=== PATIENT | female | born 1955 | race African-American/Black ===

== ENCOUNTER 2018-04-13 17:52 | Inpatient (IN) | payer MEDICARE, MEDICAID ==
[~2018-04-13] VITALS: Ht 162.6 cm; Wt 55.3 kg
[~2018-04-13 17:52] MED LIST: ACET-2178 PO; ASCO100T12 PO; BENZ1TAB7 PO; DEXT1DRO3 OP; GABA-290 PO; GLIP5TAB12 PO; LEVVL SQ; LISI10TA5 PO; METF-415 PO; MULT1TAB11 PO; OLAN10TA3 PO; OMEP20CA4 PO
[2018-04-13] MEDS ORDERED: ACETAMINOPHEN 325MG TABLET PO STA (18:17)
[2018-04-13] MEDS ORDERED: SODIUM CHLORIDE 0.9% 1000ML BAG (SEPSIS BOLUS) IV ONE (18:30)
[2018-04-13] MEDS ORDERED: PIPERACILLIN/TAZ 3.375G PREMIX 50 ML IV ONE (18:30)
[2018-04-13] MEDS ORDERED: VANCOMYCIN 1 G PREMIX 200 ML IV ONE (18:30)
[2018-04-13 19:07] LABS: HEMATOCRIT. 24.1 % (36.0-48.0); HEMOGLOBIN. 7.9 g/dL (12.0-16.0); MEAN CORPUSCULAR HEMOGLOBIN 23.2 pg (28.0-32.0); MEAN PLATELET VOLUME 8.4 fl (7.4-10.4); PLATELET 475 x1000/uL (130-400); RED BLOOD CELL COUNT 3.39 mill/uL (4.2-5.4); RED CELL DISTRIBUTION WIDTH 21.2 % (11.6-14.6)
[2018-04-13 19:15] LABS: CHLORIDE 100 mEq/L (98-107)
[2018-04-13 19:23] LABS: INR 1.2; PROTHROMBIN TIME 12.2 sec (9.1-11.1)
[2018-04-13 19:44] LABS: PLATELET ESTIMATE NORMAL
[2018-04-13] MEDS ORDERED: LORAZEPAM 2MG/ML CPJ IV PRN (20:15)
[2018-04-13] MEDS ORDERED: GUAIFENESIN 200MG/10ML SUGAR FREE UDC PO PRN (20:15)
[2018-04-13] MEDS ORDERED: ACETAMINOPHEN 325MG TABLET PO PRN (20:15)
[2018-04-13] MEDS ORDERED: ONDANSETRON HCL 4MG/2ML INJ IV PRN (20:15)
[2018-04-13] MEDS ORDERED: DOCUSATE SODIUM 100MG CAPSULE PO PRN (20:15)
[2018-04-14 02:50] VITALS: BP 106/67
[2018-04-14 03:02] LABS: CLARITY URINE CLOUDY (CLEAR); COLOR URINE YELLOW (YELLOW); PH URINE >=9.0 (4.5-8.0); SPECIFIC GRAVITY URINE 1.026 (1.005-1.030)
[2018-04-14 03:03] LABS: KETONES URINE NEGATIVE (NEGATIVE); PROTEIN URINE 1+ (NEGATIVE)
[2018-04-14 03:04] LABS: NITRITE URINE NEGATIVE (NEGATIVE); OCCULT BLOOD URINE TRACE (NEGATIVE)
[2018-04-14 03:05] LABS: LEUKOCYTE ESTERASE URINE 2+ (NEGATIVE)
[2018-04-14] MEDS: DEXT 5%/0.45% NACL 1000ML 1,000 ML IV SCH ×2 (03:22→17:51)
[2018-04-14 03:35] VITALS: BP 106/67
[2018-04-14] MEDS ORDERED: NA P230E RC (04:26)
[2018-04-14] MEDS ORDERED: MOM GT (04:26)
[2018-04-14] MEDS ORDERED: FERR15DR7 GT (04:26)
[2018-04-14] MEDS ORDERED: LOSA50TA20 GT (04:26)
[2018-04-14] MEDS ORDERED: CARB1TAB5 GT (04:26)
[2018-04-14] MEDS ORDERED: AMIN30LI2 PO (04:26)
[2018-04-14] MEDS ORDERED: BISA10SU62 RC (04:26)
[2018-04-14] MEDS ORDERED: DOCU-138 GT (04:26)
[2018-04-14] MEDS ORDERED: LACT10SO7 GT (04:26)
[2018-04-14] MEDS ORDERED: LEVOFLOXACIN 500MG PREMIX 100 ML IV SCH (05:00)
[2018-04-14] MEDS ORDERED: DEXTROSE 50% WATER 50ML SYRINGE IV PRN (05:15)
[2018-04-14] MEDS: INSULIN LISPRO 100 UNITS/ML SUBCUT SCH ×4 (06:42→21:00)
[2018-04-14] MEDS: BLOOD SUGAR DIAGNOSTIC STRIP TEST SCH ×4 (06:43→21:22)
[2018-04-14 08:00] VITALS: BP 94/58
[2018-04-14] MEDS: ASPIRIN 81MG EC TABLET PO SCH (09:08)
[2018-04-14] MEDS: ENOXAPARIN 40MG/0.4ML SYR SUBCUT SCH (09:08)
[2018-04-14 09:26] LABS: HEMATOCRIT. 22.2 % (36.0-48.0); HEMOGLOBIN. 7.3 g/dL (12.0-16.0); MEAN CORPUSCULAR HEMOGLOBIN 23.2 pg (28.0-32.0); MEAN CORPUSCULAR VOLUME 71.2 fL (81.0-99.0); MEAN PLATELET VOLUME 8.5 fl (7.4-10.4); PLATELET 427 x1000/uL (130-400); RED BLOOD CELL COUNT 3.12 mill/uL (4.2-5.4); RED CELL DISTRIBUTION WIDTH 21.2 % (11.6-14.6)
[2018-04-14] MEDS ORDERED: LIDOCAINE HCL/EPINEPHRINE 1%-EPI 1:100,000 20 ML VIAL INFIL ONE (09:30)
[2018-04-14 09:41] LABS: CHLORIDE 104 mEq/L (98-107)
[2018-04-14] MEDS ORDERED: CARBIDOPA/LEVODOPA 25/100MG TABLET CR PO SCH (11:00)
[2018-04-14 11:46] LABS: PLATELET ESTIMATE INCREASED
[2018-04-14] MEDS: CARBIDOPA/LEVODOPA 25/100MG TABLET GT SCH ×2 (13:29→17:47)
[2018-04-14] MEDS ORDERED: VANCOMYCIN 1250MG in DEXTROSE 5% WATER 250ML IV NR (14:00)
[2018-04-14] MEDS: GABAPENTIN 300MG CAPSULE PO SCH ×2 (14:00→21:23)
[2018-04-14] MEDS: PIPERACILLIN/TAZ 3.375G PREMIX 50 ML IV SCH ×2 (15:25→21:21)
[2018-04-14] MEDS ORDERED: DOCUSATE SODIUM SUGAR FREE 100MG/10ML UDC GT PRN (15:30)
[2018-04-14 16:00] VITALS: BP 105/62
[2018-04-14 20:00] VITALS: BP 104/59
[2018-04-14] MEDS: GABAPENTIN SOLN 50MG/1ML UDC NG SCH (21:22)
[2018-04-15] VITALS: BP 110/63
[2018-04-15] MEDS: ACETAMINOPHEN 325MG TABLET PO PRN ×2 (00:34→09:08)
[2018-04-15] MEDS: VANCOMYCIN 750 MG PREMIX 150 ML IV SCH ×2 (01:10→14:00)
[2018-04-15] MEDS: PIPERACILLIN/TAZ 3.375G PREMIX 50 ML IV SCH ×4 (02:48→21:31)
[2018-04-15 04:00] VITALS: BP 116/69
[2018-04-15] MEDS: GABAPENTIN SOLN 50MG/1ML UDC NG SCH ×3 (06:30→21:14)
[2018-04-15] MEDS: LEVOFLOXACIN 500MG PREMIX 100 ML IV SCH (06:30)
[2018-04-15] MEDS: BLOOD SUGAR DIAGNOSTIC STRIP TEST SCH ×4 (06:31→21:11)
[2018-04-15] MEDS: INSULIN LISPRO 100 UNITS/ML SUBCUT SCH ×4 (06:31→21:16)
[2018-04-15 07:40] LABS: CHLORIDE 104 mEq/L (98-107)
[2018-04-15 08:00] VITALS: BP 108/64
[2018-04-15] MEDS: ASPIRIN 81MG EC TABLET PO SCH (09:06)
[2018-04-15] MEDS: CARBIDOPA/LEVODOPA 25/100MG TABLET GT SCH ×3 (09:06→18:44)
[2018-04-15] MEDS: ENOXAPARIN 40MG/0.4ML SYR SUBCUT SCH (09:07)
[2018-04-15 12:00] VITALS: BP 97/61
[2018-04-15 16:00] VITALS: BP 106/62
[2018-04-15 17:08] LABS: BASOPHILS % 0.9 % (0.0-2.0); EOSINOPHILS % 0.7 % (0.0-5.0); HEMATOCRIT. 23.3 % (36.0-48.0); HEMOGLOBIN. 7.6 g/dL (12.0-16.0); MEAN CORPUSCULAR HEMOGLOBIN 23.4 pg (28.0-32.0); MEAN CORPUSCULAR VOLUME 71.8 fL (81.0-99.0); MEAN PLATELET VOLUME 8.6 fl (7.4-10.4); MONOCYTES % 4.1 % (2.0-8.0); NEUTROPHILS % 81.3 % (40.0-76.0); PLATELET 505 x1000/uL (130-400); RED BLOOD CELL COUNT 3.25 mill/uL (4.2-5.4)
[2018-04-15 17:20] LABS: CHLORIDE 106 mEq/L (98-107)
[2018-04-15 20:00] VITALS: BP 115/70
[2018-04-16] VITALS: BP 98/58
[2018-04-16] MEDS: ACETAMINOPHEN 325MG TABLET PO PRN ×2 (00:25→10:26)
[2018-04-16] MEDS: DEXT 5%/0.45% NACL 1000ML 1,000 ML IV SCH (00:28)
[2018-04-16] MEDS: VANCOMYCIN 750 MG PREMIX 150 ML IV SCH ×2 (01:03→16:47)
[2018-04-16] MEDS: PIPERACILLIN/TAZ 3.375G PREMIX 50 ML IV SCH ×2 (03:09→09:14)
[2018-04-16 04:00] VITALS: BP 97/65
[2018-04-16] MEDS: GABAPENTIN SOLN 50MG/1ML UDC NG SCH ×3 (05:16→20:48)
[2018-04-16] MEDS: BLOOD SUGAR DIAGNOSTIC STRIP TEST SCH ×4 (05:20→20:48)
[2018-04-16] MEDS: LEVOFLOXACIN 500MG PREMIX 100 ML IV SCH (05:20)
[2018-04-16] MEDS: INSULIN LISPRO 100 UNITS/ML SUBCUT SCH ×4 (05:21→20:48)
[2018-04-16 08:00] VITALS: BP 128/68
[2018-04-16] MEDS: ASPIRIN 81MG EC TABLET PO SCH (09:14)
[2018-04-16] MEDS: CARBIDOPA/LEVODOPA 25/100MG TABLET GT SCH ×3 (09:14→17:55)
[2018-04-16] MEDS: ENOXAPARIN 40MG/0.4ML SYR SUBCUT SCH (09:15)
[2018-04-16 12:00] VITALS: BP 118/66
[2018-04-16] MEDS: MEROPENEM 1,000 MG in SODIUM CHLORIDE 0.9% 100 ML IV SCH ×2 (12:38→20:36)
[2018-04-16 16:00] VITALS: BP 120/64
[2018-04-16] MEDS: SODIUM CHLORIDE 0.45% 1,000 ML IV SCH (17:56)
[2018-04-16 20:00] VITALS: BP 122/66
[2018-04-17] VITALS: BP 113/65
[2018-04-17] MEDS: MEROPENEM 1,000 MG in SODIUM CHLORIDE 0.9% 100 ML IV SCH ×3 (03:32→20:39)
[2018-04-17 04:00] VITALS: BP 123/64
[2018-04-17] MEDS: SODIUM CHLORIDE 0.45% 1,000 ML IV SCH ×2 (05:06→23:33)
[2018-04-17] MEDS: GABAPENTIN SOLN 50MG/1ML UDC NG SCH ×3 (05:06→21:04)
[2018-04-17] MEDS: BLOOD SUGAR DIAGNOSTIC STRIP TEST SCH ×4 (06:02→20:45)
[2018-04-17] MEDS: INSULIN LISPRO 100 UNITS/ML SUBCUT SCH ×4 (06:06→20:45)
[2018-04-17 07:57] VITALS: BP 105/64
[2018-04-17] MEDS: CARBIDOPA/LEVODOPA 25/100MG TABLET GT SCH ×3 (09:47→17:46)
[2018-04-17] MEDS: ASPIRIN 81MG EC TABLET PO SCH (09:47)
[2018-04-17] MEDS: ACETAMINOPHEN 325MG TABLET PO PRN (09:47)
[2018-04-17] MEDS: VANCOMYCIN 750 MG PREMIX 150 ML IV SCH (09:48)
[2018-04-17] MEDS: ENOXAPARIN 40MG/0.4ML SYR SUBCUT SCH (09:48)
[2018-04-17 09:59] LABS: BASOPHILS % 0.5 % (0.0-2.0); LYMPHOCYTES % 12.2 % (20.0-50.0); MEAN CORPUSCULAR HEMOGLOBIN 23.9 pg (28.0-32.0); MEAN CORPUSCULAR VOLUME 71.6 fL (81.0-99.0); MEAN PLATELET VOLUME 8.6 fl (7.4-10.4); MONOCYTES % 6.4 % (2.0-8.0); NEUTROPHILS % 79.9 % (40.0-76.0); PLATELET 567 x1000/uL (130-400); RED BLOOD CELL COUNT 2.93 mill/uL (4.2-5.4); RED CELL DISTRIBUTION WIDTH 20.8 % (11.6-14.6)
[2018-04-17 10:00] VITALS: BP 106/70
[2018-04-17 10:11] LABS: CHLORIDE 104 mEq/L (98-107)
[2018-04-17] MEDS ORDERED: ACETAMINOPHEN 325MG TABLET PO SCH (11:00)
[2018-04-17 16:00] VITALS: BP 100/59
[2018-04-17 20:00] VITALS: BP 112/59
[2018-04-18] VITALS: BP 134/81
[2018-04-18] MEDS: MEROPENEM 1,000 MG in SODIUM CHLORIDE 0.9% 100 ML IV SCH ×3 (03:37→22:32)
[2018-04-18 04:00] VITALS: BP 142/82
[2018-04-18] MEDS: GABAPENTIN SOLN 50MG/1ML UDC NG SCH ×3 (06:26→22:33)
[2018-04-18] MEDS: BLOOD SUGAR DIAGNOSTIC STRIP TEST SCH ×4 (06:26→21:00)
[2018-04-18] MEDS: INSULIN LISPRO 100 UNITS/ML SUBCUT SCH ×4 (06:28→21:00)
[2018-04-18 08:00] VITALS: BP 124/66
[2018-04-18] MEDS: ENOXAPARIN 40MG/0.4ML SYR SUBCUT SCH (08:26)
[2018-04-18] MEDS: CARBIDOPA/LEVODOPA 25/100MG TABLET GT SCH ×3 (08:26→16:51)
[2018-04-18] MEDS: ASPIRIN 81MG EC TABLET PO SCH (08:26)
[2018-04-18] MEDS: SODIUM CHLORIDE 0.45% 1,000 ML IV SCH ×2 (08:27→22:33)
[2018-04-18 12:00] VITALS: BP 101/97
[2018-04-18 16:00] VITALS: BP 122/80
[2018-04-18 20:00] VITALS: BP 126/75
[2018-04-19] VITALS: BP 125/71
[2018-04-19] MEDS: ACETAMINOPHEN 325MG TABLET PO PRN (01:13)
[2018-04-19 04:00] VITALS: BP 105/56
[2018-04-19] MEDS: MEROPENEM 1,000 MG in SODIUM CHLORIDE 0.9% 100 ML IV SCH ×3 (04:00→21:55)
[2018-04-19] MEDS: INSULIN LISPRO 100 UNITS/ML SUBCUT SCH ×4 (07:08→21:58)
[2018-04-19] MEDS: BLOOD SUGAR DIAGNOSTIC STRIP TEST SCH ×4 (07:10→21:58)
[2018-04-19] MEDS: GABAPENTIN SOLN 50MG/1ML UDC NG SCH ×3 (07:10→21:57)
[2018-04-19 08:00] VITALS: BP 142/71
[2018-04-19] MEDS: CARBIDOPA/LEVODOPA 25/100MG TABLET GT SCH ×3 (09:04→18:02)
[2018-04-19] MEDS: ASPIRIN 81MG EC TABLET PO SCH (09:04)
[2018-04-19] MEDS: ENOXAPARIN 40MG/0.4ML SYR SUBCUT SCH (09:06)
[2018-04-19 10:39] LABS: BASOPHILS % 0.4 % (0.0-2.0); EOSINOPHILS % 1.9 % (0.0-5.0); HEMATOCRIT. 21.7 % (36.0-48.0); HEMOGLOBIN. 7.4 g/dL (12.0-16.0); LYMPHOCYTES % 12.1 % (20.0-50.0); MEAN CORPUSCULAR HEMOGLOBIN 23.8 pg (28.0-32.0); MEAN CORPUSCULAR VOLUME 70.2 fL (81.0-99.0); MEAN PLATELET VOLUME 7.6 fl (7.4-10.4); MONOCYTES % 8.3 % (2.0-8.0); NEUTROPHILS % 77.3 % (40.0-76.0); PLATELET 626 x1000/uL (130-400); RED CELL DISTRIBUTION WIDTH 20.3 % (11.6-14.6)
[2018-04-19 12:00] VITALS: BP 131/82
[2018-04-19] MEDS: SODIUM CHLORIDE 0.45% 1,000 ML IV SCH (12:01)
[2018-04-19 16:00] VITALS: BP 110/68
[2018-04-19 20:00] VITALS: BP 126/78
[2018-04-20] VITALS: BP 115/63
[2018-04-20] MEDS: ACETAMINOPHEN 325MG TABLET PO PRN (00:41)
[2018-04-20] MEDS: SODIUM CHLORIDE 0.45% 1,000 ML IV SCH (02:12)
[2018-04-20 04:00] VITALS: BP 123/74
[2018-04-20] MEDS: MEROPENEM 1,000 MG in SODIUM CHLORIDE 0.9% 100 ML IV SCH ×2 (04:20→11:49)
[2018-04-20] MEDS: GABAPENTIN SOLN 50MG/1ML UDC NG SCH ×2 (06:17→13:13)
[2018-04-20] MEDS: BLOOD SUGAR DIAGNOSTIC STRIP TEST SCH ×2 (06:17→11:55)
[2018-04-20] MEDS: INSULIN LISPRO 100 UNITS/ML SUBCUT SCH ×3 (06:21→16:54)
[2018-04-20 08:00] VITALS: BP 130/81
[2018-04-20] MEDS: ASPIRIN 81MG EC TABLET PO SCH (08:51)
[2018-04-20] MEDS: ENOXAPARIN 40MG/0.4ML SYR SUBCUT SCH (08:51)
[2018-04-20] MEDS: CARBIDOPA/LEVODOPA 25/100MG TABLET GT SCH ×2 (08:52→13:12)
[2018-04-20 12:00] VITALS: BP 125/78
[2018-04-20 14:58] VITALS: BP 125/78
== END 2018-04-20 16:35 | DRG 853 ==
LOC: ER 18:19 → EDBEDREQSVC 19:50 → EDBEDREQTM 19:50 → 5WST 19:58 → EDBEDREQTM 20:03 → EDBEDREQ 20:03 → SUPCPDRO 20:08 → ENRESERV 04-14 00:24
PROVIDERS: ADMIT Hospitalist; ATTEND Hospitalist
PROC: 0JB70ZZ Excision of Back Subcutaneous Tissue and Fascia, Open Approach (ICD-10-PCS; principal; 2018-04-14)
PROC: 0JBQ0ZZ Excision of Right Foot Subcutaneous Tissue and Fascia, Open Approach (ICD-10-PCS; 2018-04-14)
PROC: 0JBR0ZZ Excision of Left Foot Subcutaneous Tissue and Fascia, Open Approach (ICD-10-PCS; 2018-04-14)
DX: A41.51 Sepsis due to Escherichia coli [E. coli] (principal); L89.154 Pressure ulcer of sacral region, stage 4; E43 Unspecified severe protein-calorie malnutrition; L89.323 Pressure ulcer of left buttock, stage 3; G93.40 Encephalopathy, unspecified; N30.00 Acute cystitis without hematuria; D63.8 Anemia in other chronic diseases classified elsewhere; E11.9 Type 2 diabetes mellitus without complications; G20 Parkinson's disease; F02.80 Dementia in other diseases classified elsewhere, unspecified severity, without behavioral disturbance, psychotic disturbance, mood disturbance, and anxiety; L89.629 Pressure ulcer of left heel, unspecified stage; L89.619 Pressure ulcer of right heel, unspecified stage; S50.822A Blister (nonthermal) of left forearm, initial encounter; I10 Essential (primary) hypertension; K21.9 Gastro-esophageal reflux disease without esophagitis; Z74.01 Bed confinement status; Z88.2 Allergy status to sulfonamides; Z79.4 Long term (current) use of insulin; Z79.899 Other long term (current) drug therapy; Z79.1 Long term (current) use of non-steroidal anti-inflammatories (NSAID); Z93.1 Gastrostomy status; Z68.20 Body mass index [BMI] 20.0-20.9, adult; X58.XXXA Exposure to other specified factors, initial encounter; Y93.89 Activity, other specified; Y92.89 Other specified places as the place of occurrence of the external cause; Y99.8 Other external cause status
CPT/HCPCS: 36415; 71045; 73630; 80048; 80202; 82962; 83605; 84134; 84145; 86850; 86900; 86920; 87077; 87186; 93005; 93970; 93971; 96365; 99291; A6261; C1893; J1650; J1815; J1956; J2185; J2543; J3370; J3490; J7030; J7040; J7050; J7060; A4315